=== PATIENT | male | born 1970 | race Caucasian/White ===

== ENCOUNTER 2018-11-24 15:05 | Emergency (ER) | payer MEDICAID ==
[~2018-11-24] VITALS: Ht 157.5 cm; Wt 75.0 kg
[2018-11-24] MEDS ORDERED: LEVE750T10 MT (16:17)
[2018-11-24] MEDS ORDERED: OXCA300T31 MT (16:17)
[2018-11-24] MEDS ORDERED: GABA-533 MT (16:17)
[2018-11-24] MEDS ORDERED: ACETAMINOPHEN 325MG TABLET PO ONE (16:45)
[2018-11-24 17:15] LABS: BASOPHILS % 0.4 % (0.0-2.0); EOSINOPHILS % 0.2 % (0.0-5.0); HEMATOCRIT. 46.7 % (42.0-52.0); LYMPHOCYTES % 11.4 % (20.0-50.0); MEAN CORPUSCULAR HEMOGLOBIN 32.4 pg (28.0-32.0); MEAN CORPUSCULAR VOLUME 94.7 fL (80.0-94.0); MEAN PLATELET VOLUME 8.4 fl (7.4-10.4); MONOCYTES % 10.9 % (2.0-8.0); NEUTROPHILS % 77.1 % (40.0-76.0); PLATELET 180 x1000/uL (130-400); RED BLOOD CELL COUNT 4.93 mill/uL (4.7-6.1); RED CELL DISTRIBUTION WIDTH 13.3 % (11.6-14.6)
[2018-11-24 17:19] LABS: CHLORIDE 95 mEq/L (98-107)
[2018-11-24 17:57] LABS: CLARITY URINE CLEAR (CLEAR); COLOR URINE DARK YELLOW (YELLOW); KETONES URINE TRACE (NEGATIVE); LEUKOCYTE ESTERASE URINE TRACE (NEGATIVE); NITRITE URINE POSITIVE (NEGATIVE); OCCULT BLOOD URINE 2+ (NEGATIVE); PH URINE 5.5 (4.5-8.0); PROTEIN URINE 1+ (NEGATIVE)
[2018-11-24 21:58] VITALS: BP 118/78
== END 2018-11-24 22:01 | disposition home or self-care (01) ==
LOC: ER 15:05
DX: S20.211A Contusion of right front wall of thorax, initial encounter (principal); R56.9 Unspecified convulsions; N39.0 Urinary tract infection, site not specified; Z91.19 Patient's noncompliance with other medical treatment and regimen; Z79.82 Long term (current) use of aspirin; Z88.6 Allergy status to analgesic agent; Z79.899 Other long term (current) drug therapy; X58.XXXA Exposure to other specified factors, initial encounter; Y93.89 Activity, other specified; Y92.89 Other specified places as the place of occurrence of the external cause; Y99.8 Other external cause status
CPT/HCPCS: 36415; 71101; 93005; 99284

== ENCOUNTER 2022-01-24 17:45 | Emergency (ER) | payer MEDICAID ==
[~2022-01-24] VITALS: Ht 157.5 cm; Wt 82.0 kg
[~2022-01-24 17:45] MED LIST: GABA-533 MT; LEVE750T10 MT; OXCA300T31 MT
[2022-01-24 17:59] VITALS: BP 138/90
[2022-01-24] MEDS ORDERED: TETANUS, DIPHTHERIA, PERTUSSIS VAC/PF 0.5ML (>10YR OLD) IM ONE (18:30)
[2022-01-24 19:24] LABS: BASOPHILS % 0.4 % (0.0-2.0); EOSINOPHILS % 1.3 % (0.0-5.0); HEMATOCRIT. 44.5 % (42.0-52.0); HEMOGLOBIN. 15.3 g/dL (14.0-18.0); LYMPHOCYTES % 18.5 % (20.0-50.0); MEAN CORPUSCULAR HEMOGLOBIN 31.6 pg (28.0-32.0); MEAN CORPUSCULAR VOLUME 91.7 fL (80.0-94.0); MEAN PLATELET VOLUME 7.8 fl (7.4-10.4); MONOCYTES % 11.3 % (2.0-8.0); NEUTROPHILS % 68.5 % (40.0-76.0); PLATELET 202 x1000/uL (130-400); RED BLOOD CELL COUNT 4.86 mill/uL (4.7-6.1)
[2022-01-24 19:32] LABS: CHLORIDE 99 mEq/L (98-107)
[2022-01-24 19:38] LABS: PHOSPHORUS 3.3 mg/dL (2.5-4.9)
[2022-01-24 21:14] LABS: CLARITY URINE CLEAR (CLEAR); COLOR URINE YELLOW (YELLOW); KETONES URINE NEGATIVE (NEGATIVE); LEUKOCYTE ESTERASE URINE NEGATIVE (NEGATIVE); NITRITE URINE NEGATIVE (NEGATIVE); OCCULT BLOOD URINE TRACE (NEGATIVE); PROTEIN URINE TRACE (NEGATIVE); SPECIFIC GRAVITY URINE 1.024 (1.005-1.030); UROBILINOGEN URINE 0.2 E.U./dL (0.2-1.0)
[2022-01-24] MEDS ORDERED: CEFTRIAXONE 1 G PREMIX 50 ML IV ONE (22:30)
[2022-01-24] MEDS ORDERED: CEFP200T13 MT (22:31)
== END 2022-01-24 23:23 | disposition home or self-care (01) ==
LOC: ER 17:45
DX: N39.0 Urinary tract infection, site not specified (principal); R55 Syncope and collapse; Z79.899 Other long term (current) drug therapy
CPT/HCPCS: 36415; 70450; 71045; 80053; 81003; 83735; 83880; 84100; 84484; 85025; 90471; 90715; 93005; 96365; 99285; J0696

== ENCOUNTER 2022-10-04 21:45 | Inpatient (IN) | payer MEDICAID, OTHER ==
[~2022-10-04] VITALS: Ht 157.5 cm; Wt 77.6 kg
[~2022-10-04 21:45] MED LIST changes: +CEFP200T13 MT
[2022-10-05] MEDS ORDERED: ACETAMINOPHEN 325MG TABLET PO ONE (00:30)
[2022-10-05] MEDS ORDERED: PIPERACILLIN/TAZ 3.375G PREMIX 50 ML IV ONE (01:15)
[2022-10-05 01:53] LABS: BASOPHILS % 0.8 % (0.0-2.0); HEMATOCRIT. 37.8 % (42.0-52.0); HEMOGLOBIN. 12.6 g/dL (14.0-18.0); LYMPHOCYTES % 21.7 % (20.0-50.0); MEAN CORPUSCULAR HEMOGLOBIN 30.3 pg (28.0-32.0); MEAN CORPUSCULAR VOLUME 90.7 fL (80.0-94.0); MEAN PLATELET VOLUME 7.3 fl (7.4-10.4); MONOCYTES % 9.4 % (2.0-8.0); NEUTROPHILS % 65.1 % (40.0-76.0); PLATELET 332 x1000/uL (130-400); RED BLOOD CELL COUNT 4.17 mill/uL (4.7-6.1); RED CELL DISTRIBUTION WIDTH 13.8 % (11.6-14.6)
[2022-10-05 02:20] LABS: CHLORIDE 97 mEq/L (98-107)
[2022-10-05] MEDS ORDERED: MORPHINE SULFATE 4 MG/ML CPJ (NOT FOR IM USE) IV STA (02:45)
[2022-10-05] MEDS ORDERED: ONDANSETRON HCL 4MG/2ML INJ IV STA (02:45)
[2022-10-05] MEDS ORDERED: LEVETIRACETAM 1000MG PREMIX 100 ML IV NR (03:20)
[2022-10-05] MEDS ORDERED: ACETAMINOPHEN 325MG TABLET PO PRN (10:15)
[2022-10-05] MEDS ORDERED: ONDANSETRON HCL 4MG/2ML INJ IV PRN (10:15)
[2022-10-05 12:00] VITALS: BP 112/69
[2022-10-05] MEDS ORDERED: PIPERACILLIN/TAZOBACTAM 3.375 G in DEXTROSE 5% WATER 50 ML IV SCH (12:00)
[2022-10-05 12:05] VITALS: BP 118/72
[2022-10-05 12:30] VITALS: BP 118/72
[2022-10-05] MEDS ORDERED: LEVE10006 PO (15:25)
[2022-10-05] MEDS ORDERED: TAMS-11 PO (15:25)
[2022-10-05] MEDS ORDERED: ATOR20TA65 PO (15:25)
[2022-10-05] MEDS: PIPERACILLIN/TAZOBACTAM 3.375 G in DEXTROSE 5% WATER 50 ML IV SCH ×2 (15:48→22:04)
[2022-10-05] MEDS: LEVETIRACETAM 500MG TABLET PO SCH ×2 (15:48→22:04)
[2022-10-05 16:00] VITALS: BP 125/67
[2022-10-05 20:00] VITALS: BP 124/75
[2022-10-05] MEDS ORDERED: ATORVASTATIN CALCIUM 20MG TABLET PO SCH (21:00)
[2022-10-06] VITALS: BP 112/66
[2022-10-06 04:00] VITALS: BP 105/67
[2022-10-06] MEDS: PIPERACILLIN/TAZOBACTAM 3.375 G in DEXTROSE 5% WATER 50 ML IV SCH ×2 (06:41→12:23)
[2022-10-06 08:00] VITALS: BP 103/69
[2022-10-06] MEDS: LEVETIRACETAM 500MG TABLET PO SCH (08:57)
[2022-10-06] MEDS ORDERED: OXCARBAZEPINE 300MG TABLET PO SCH (09:00)
[2022-10-06] MEDS ORDERED: TAMSULOSIN HCL 0.4MG SR CAPSULE PO SCH (09:00)
[2022-10-06] MEDS ORDERED: GABAPENTIN 400MG CAPSULE PO SCH ×2 (09:00→21:00)
[2022-10-06 10:48] LABS: *AMPHETAMINES SCREEN URINE NEGATIVE (NEGATIVE); *BARBITURATES SCREEN URINE NEGATIVE (NEGATIVE); *BENZODIAZEPINES SCREEN URINE NEGATIVE (NEGATIVE); *COCAINE SCREEN URINE NEGATIVE (NEGATIVE); CANNABINOID URINE SCREEN NEGATIVE (NEGATIVE); METHADONE URINE SCREEN NEGATIVE (NEGATIVE); OPIATES URINE SCREEN NEGATIVE (NEGATIVE); PHENCYCLIDINE URINE SCREEN NEGATIVE (NEGATIVE)
[2022-10-06 12:00] VITALS: BP 111/66
[2022-10-06 16:00] VITALS: BP 100/68
[2022-10-06 17:13] VITALS: BP 111/66
== END 2022-10-06 18:17 | disposition home or self-care (01) ==
LOC: ER 21:45 → MICUSO 10-05 05:12 → 6EST 10-05 11:08
PROVIDERS: ADMIT Internal Medicine; ATTEND Internal Medicine
DX: K81.0 Acute cholecystitis (principal); E87.1 Hypo-osmolality and hyponatremia; E87.8 Other disorders of electrolyte and fluid balance, not elsewhere classified; R56.9 Unspecified convulsions; D64.9 Anemia, unspecified; K83.8 Other specified diseases of biliary tract; Z88.6 Allergy status to analgesic agent; Z88.1 Allergy status to other antibiotic agents; Z79.899 Other long term (current) drug therapy
CPT/HCPCS: 36415; 74181; 76705; 80053; 80305; 85025; 99285; J1953; J2270; J2405; J2543; J7060

== ENCOUNTER 2023-01-27 03:20 | Inpatient (IN) | payer OTHER ==
[~2023-01-27] VITALS: Ht 172.7 cm; Wt 74.8 kg
[~2023-01-27 03:20] MED LIST changes: +ATOR20TA65 PO; -CEFP200T13 MT; +LEVE10006 PO; -LEVE750T10 MT; +TAMS-11 PO
[2023-01-27] MEDS ORDERED: KETOROLAC 30MG/ML VIAL IV STA (05:49)
[2023-01-27 08:18] LABS: BASOPHILS % 0.5 % (0.0-2.0); CHLORIDE 95 mEq/L (98-107); HEMATOCRIT. 41.2 % (42.0-52.0); HEMOGLOBIN. 13.6 g/dL (14.0-18.0); INR 1.1; LYMPHOCYTES % 13.5 % (20.0-50.0); MEAN CORPUSCULAR HEMOGLOBIN 29.2 pg (28.0-32.0); MEAN CORPUSCULAR VOLUME 88.3 fL (80.0-94.0); MEAN PLATELET VOLUME 7.3 fl (7.4-10.4); MONOCYTES % 6.2 % (2.0-8.0); NEUTROPHILS % 78.8 % (40.0-76.0); PLATELET 362 x1000/uL (130-400); PROTHROMBIN TIME 12.2 sec (9.6-11.0); RED BLOOD CELL COUNT 4.66 mill/uL (4.7-6.1); RED CELL DISTRIBUTION WIDTH 15.3 % (11.6-14.6)
[2023-01-27] MEDS ORDERED: KETOROLAC 30MG/ML VIAL IV NR (08:45)
[2023-01-27 12:00] VITALS: BP 173/94
[2023-01-27 12:03] LABS: CLARITY URINE CLEAR (CLEAR); COLOR URINE DARK YELLOW (YELLOW); KETONES URINE NEGATIVE (NEGATIVE); LEUKOCYTE ESTERASE URINE NEGATIVE (NEGATIVE); NITRITE URINE NEGATIVE (NEGATIVE); OCCULT BLOOD URINE NEGATIVE (NEGATIVE); PROTEIN URINE TRACE (NEGATIVE); SPECIFIC GRAVITY URINE 1.019 (1.005-1.030)
[2023-01-27 13:00] VITALS: BP 129/80
[2023-01-27] MEDS ORDERED: ONDANSETRON HCL 4MG/2ML INJ IV PRN (13:00)
[2023-01-27] MEDS: KETOROLAC 30MG/ML VIAL IV PRN ×2 (14:36→21:59)
[2023-01-27 16:00] VITALS: BP_SYST 134; BP_SYST 176; BP_DIAS 80; BP_DIAS 84
[2023-01-27 18:07] VITALS: BP 153/94
[2023-01-27] MEDS ORDERED: INFLUENZA VACCINE 05/PF 0.5 ML SYRINGE IM ONE (19:00)
[2023-01-27] MEDS ORDERED: PNEUMOCOCCAL 23-VAL P-SAC VAC 0.5 ML IM ONE (19:00)
[2023-01-27] MEDS: DEXT 5%/0.45% NACL 1000ML 1,000 ML IV SCH (19:30)
[2023-01-27] MEDS ORDERED: NALOXONE HCL 0.4MG/ML VIAL IV PRN (19:30)
[2023-01-27] MEDS: HYDROCODONE/ACETAMINOPHEN 5/325MG TABLET PO PRN (19:43)
[2023-01-27] MEDS ORDERED: DEXT 5%/0.45% NACL 500ML 1,000 ML IV SCH (20:00)
[2023-01-27] MEDS ORDERED: OXCA300T31 PO ×2 (20:02)
[2023-01-27] MEDS ORDERED: LEVE10006 PO (20:02)
[2023-01-27] MEDS ORDERED: ATOR20TA65 PO (20:02)
[2023-01-27] MEDS ORDERED: GABA-533 PO ×2 (20:02)
[2023-01-27] MEDS ORDERED: *PATIENT'S OWN MEDICATION STORAGE XX SCH (20:45)
[2023-01-28] MEDS: HYDROCODONE/ACETAMINOPHEN 5/325MG TABLET PO PRN ×2 (07:02→20:35)
[2023-01-28 08:00] VITALS: BP 154/88
[2023-01-28] MEDS: DEXT 5%/0.45% NACL 1000ML 1,000 ML IV SCH ×2 (08:50→21:33)
[2023-01-28 09:18] LABS: BASOPHILS % 0.2 % (0.0-2.0); EOSINOPHILS % 0.4 % (0.0-5.0); HEMATOCRIT. 41.5 % (42.0-52.0); LYMPHOCYTES % 7.2 % (20.0-50.0); MEAN CORPUSCULAR HEMOGLOBIN 29.8 pg (28.0-32.0); MEAN CORPUSCULAR VOLUME 88.7 fL (80.0-94.0); MEAN PLATELET VOLUME 7.2 fl (7.4-10.4); MONOCYTES % 9.7 % (2.0-8.0); NEUTROPHILS % 82.5 % (40.0-76.0); PLATELET 307 x1000/uL (130-400); RED BLOOD CELL COUNT 4.68 mill/uL (4.7-6.1); RED CELL DISTRIBUTION WIDTH 15.4 % (11.6-14.6)
[2023-01-28 09:30] LABS: CHLORIDE 98 mEq/L (98-107)
[2023-01-28] MEDS: PIPERACILLIN/TAZOBACTAM 3.375 G in DEXTROSE 5% WATER 50 ML IV SCH ×3 (09:44→21:33)
[2023-01-28] MEDS: OXCARBAZEPINE 300MG TABLET PO SCH ×2 (11:05→21:31)
[2023-01-28] MEDS: TAMSULOSIN HCL 0.4MG SR CAPSULE PO SCH (11:06)
[2023-01-28] MEDS: LEVETIRACETAM 500MG TABLET PO SCH ×2 (11:06→21:32)
[2023-01-28] MEDS: GABAPENTIN 400MG CAPSULE PO SCH ×3 (11:06→21:32)
[2023-01-28 12:13] VITALS: BP 137/75
[2023-01-28 20:00] VITALS: BP 132/84
[2023-01-28] MEDS: ATORVASTATIN CALCIUM 20MG TABLET PO SCH (21:32)
[2023-01-29] VITALS: BP 113/76
[2023-01-29 04:00] VITALS: BP 109/75
[2023-01-29] MEDS: HYDROCODONE/ACETAMINOPHEN 5/325MG TABLET PO PRN ×2 (06:08→20:54)
[2023-01-29] MEDS: PIPERACILLIN/TAZOBACTAM 3.375 G in DEXTROSE 5% WATER 50 ML IV SCH ×3 (06:09→20:55)
[2023-01-29 08:00] VITALS: BP 113/58
[2023-01-29] MEDS: TAMSULOSIN HCL 0.4MG SR CAPSULE PO SCH (08:51)
[2023-01-29] MEDS: LEVETIRACETAM 500MG TABLET PO SCH ×2 (08:51→20:55)
[2023-01-29] MEDS: GABAPENTIN 400MG CAPSULE PO SCH ×3 (08:51→20:55)
[2023-01-29] MEDS: OXCARBAZEPINE 300MG TABLET PO SCH ×2 (08:51→20:55)
[2023-01-29 12:00] VITALS: BP 104/63
[2023-01-29] MEDS: DEXT 5%/0.45% NACL 1000ML 1,000 ML IV SCH (12:30)
[2023-01-29 16:00] VITALS: BP 103/64
[2023-01-29 20:00] VITALS: BP 115/68
[2023-01-29] MEDS: ATORVASTATIN CALCIUM 20MG TABLET PO SCH (20:55)
[2023-01-30] VITALS: BP 120/71
[2023-01-30] MEDS: DEXT 5%/0.45% NACL 1000ML 1,000 ML IV SCH (00:50)
[2023-01-30 04:00] VITALS: BP 114/78
[2023-01-30] MEDS: PIPERACILLIN/TAZOBACTAM 3.375 G in DEXTROSE 5% WATER 50 ML IV SCH (06:36)
[2023-01-30 08:00] VITALS: BP 111/79
[2023-01-30] MEDS: GABAPENTIN 400MG CAPSULE PO SCH (09:40)
[2023-01-30] MEDS: OXCARBAZEPINE 300MG TABLET PO SCH (09:40)
[2023-01-30] MEDS: LEVETIRACETAM 500MG TABLET PO SCH (09:41)
[2023-01-30] MEDS: TAMSULOSIN HCL 0.4MG SR CAPSULE PO SCH (09:46)
[2023-01-30 10:55] VITALS: BP 111/70
== END 2023-01-30 12:32 | disposition home or self-care (01) ==
LOC: ER 03:20 → 6EST 10:14 → ENRESERV 12:18
PROVIDERS: ADMIT Internal Medicine; ATTEND Internal Medicine
DX: K80.10 Calculus of gallbladder with chronic cholecystitis without obstruction (principal); E87.1 Hypo-osmolality and hyponatremia; G40.909 Epilepsy, unspecified, not intractable, without status epilepticus; R74.01 Elevation of levels of liver transaminase levels; R79.89 Other specified abnormal findings of blood chemistry; Z88.6 Allergy status to analgesic agent; Z79.899 Other long term (current) drug therapy
CPT/HCPCS: 36415; 74181; 76705; 80053; 81003; 85025; 90686; 90732; 99285; C1893; J1885; J2543; J7060

== ENCOUNTER 2024-02-23 13:54 | Emergency (ER) | payer MEDICAID ==
[~2024-02-23] VITALS: Ht 167.6 cm; Wt 72.0 kg
[~2024-02-23 13:54] MED LIST changes: -GABA-533 MT; +GABA-534 MT; +GABA-534 PO; +OXCA300T31 PO
[2024-02-23 13:59] VITALS: TEMP 98.2; O2SAT 98
[2024-02-23] MEDS ORDERED: CYCL10TA21 MT (19:31)
[2024-02-23] MEDS ORDERED: ACET-2708 MT (19:31)
[2024-02-23 20:22] VITALS: BP 148/78; PULSE 87; RESP 20
== END 2024-02-23 20:23 | disposition home or self-care (01) ==
LOC: ER 14:11
DX: M54.9 Dorsalgia, unspecified (principal); Z88.6 Allergy status to analgesic agent; Z88.8 Allergy status to other drugs, medicaments and biological substances; W18.39XA Other fall on same level, initial encounter; Y93.89 Activity, other specified; Y92.89 Other specified places as the place of occurrence of the external cause; Y99.8 Other external cause status
CPT/HCPCS: 71250; 76705; 99284